=== PATIENT | male | born 1960 | race African-American/Black ===

== ENCOUNTER 2019-12-23 14:40 | Emergency (ER) | payer OTHER ==
[2019-12-24 14:40] LABS: SARS-CoV-2 MS2 Positive; SARS-CoV-2 N Gene Negative; SARS-CoV-2 S Gene Negative; SARS-CoV-2 orf1ab Negative
== END 2019-12-23 16:11 | disposition home or self-care (01) ==
LOC: ERS 14:40
DX: Z20.828 Contact with and (suspected) exposure to other viral communicable diseases (principal); E11.9 Type 2 diabetes mellitus without complications; I10 Essential (primary) hypertension; E78.5 Hyperlipidemia, unspecified; E78.00 Pure hypercholesterolemia, unspecified; F17.210 Nicotine dependence, cigarettes, uncomplicated
CPT/HCPCS: 87635; 99283; U0003

== ENCOUNTER 2020-08-21 11:08 | Outpatient (CLI) | payer OTHER | END 2020-08-21 11:09 | disposition home or self-care (01) | LOC: BICULT 11:08 | PROVIDERS: ATTEND Internal Medicine Cardiovascular Disease | DX: E07.89 Other specified disorders of thyroid (principal); E04.2 Nontoxic multinodular goiter | CPT/HCPCS: 76536 ==

== ENCOUNTER 2022-11-29 12:47 | Inpatient (IN) | payer BC ==
[2022-11-29 13:52] VITALS: BMI 30.4
[2022-11-29] MEDS ORDERED: HYDROcodone/Acetaminophen 5/325 mg Tablet PO PRN (14:51)
[2022-11-29] MEDS ORDERED: Ondansetron PF 4 MG/2 ML Vial IVP PRN (14:51)
[2022-11-29] MEDS ORDERED: Acetaminophen 325 MG TAB PO PRN (14:51)
[2022-11-29] MEDS ORDERED: Bisacodyl 5 MG TAB PO PRN (14:51)
[2022-11-29] MEDS ORDERED: Dextrose 50% Abboject 50 ML SYRINGE SLOW IVP PRN (15:26)
[2022-11-29] MEDS ORDERED: Glucagon 1 MG/ML KIT IM PRN (15:26)
[2022-11-29] MEDS ORDERED: HumaLOG 300 UNITS/3 ML VIAL SC PRN (15:26)
[2022-11-29] MEDS ORDERED: Dextrose 5% in Water 1,000 ML IV PRN (15:26)
[2022-11-29] MEDS: Nicotine 21 MG PATCH TD SCH (15:32)
[2022-11-29] MEDS: Sodium Chloride 0.9% 1,000 ML IV SCH (15:32)
[2022-11-29] MEDS: Piperacillin/Tazobactam 3.375 GM in Sodium Chloride 0.9% 100 ML IVPB SCH ×2 (16:34→23:11)
[2022-11-29] MEDS: Vancomycin HCl 125 MG/5 ML (BATCHED) UDCUP PO SCH (20:53)
[2022-11-30 02:22] LABS: Campy jejuni + coli by PCR Negative (Negative); STEC Shiga Toxin 1+2 Negative (Negative); Salmonella spp. by PCR POSITIVE (Negative); Shigella spp + EIEC by PCR Negative (Negative)
[2022-11-30] MEDS: Vancomycin HCl 125 MG/5 ML (BATCHED) UDCUP PO SCH ×4 (02:49→20:53)
[2022-11-30] MEDS: HYDROcodone/Acetaminophen 5/325 mg Tablet PO PRN ×3 (02:51→20:58)
[2022-11-30] MEDS: Sodium Chloride 0.9% 1,000 ML IV SCH ×3 (04:12→23:06)
[2022-11-30 09:06] LABS: #Basophils 0.1 thou/uL (0.0-0.2); #Eosinphils 0.1 thou/uL (0.0-0.7); #Monocytes 0.9 thou/uL (0.11-0.59); #Neutrophils 13.5 thou/uL (1.40-6.50); %Basophils 0.3 % (0.0-1.0); %Eosinophils 0.7 % (0.0-10.0); %Lymphocytes 8.8 % (21.0-51.0); %Monocytes 5.5 % (0.0-10.0); %Neutrophils 83.8 % (42.0-75.0); Hemoglobin 14.4 g/dL (14.0-18.0); Mean Corpuscular HGB CONC 32.8 g/dL (32.0-36.0); Mean Corpuscular Hemoglobin 27.6 pg (27.0-31.0); Mean Corpuscular Volume 84.3 fl (78.0-98.0); Mean Platelet Volume 8.3 fL (7.4-10.4); Platelet Count 332 10x3/uL (130-400); RBC Distribution Width 14.6 % (11.5-14.5); Red Blood Cell (RBC) Count 5.21 mill/uL (4.70-6.10); White Blood Cell (WBC) Count 16.1 10x3/uL (4.8-10.8)
[2022-11-30 09:27] LABS: Anion Gap 15 mmol/L (10-20); BUN (Urea Nitrogen) 13 mg/dL (8.4-25.7); Calc. Creatinine Clearance 73 mL/min (70-130); Calcium 8.8 mg/dL (7.8-10.44); Carbon Dioxide 18 mmol/L (23-31); Chloride 106 mmol/L (98-107); Estimated GFR 61; Glucose 160 mg/dL (80-115); Potassium 3.2 mmol/L (3.5-5.1); Sodium 136 mmol/L (136-145)
[2022-11-30] MEDS: Piperacillin/Tazobactam 3.375 GM in Sodium Chloride 0.9% 100 ML IVPB SCH ×3 (09:34→23:05)
[2022-11-30] MEDS: Saccharomyces boulardii 250 MG CAP PO SCH (09:35)
[2022-11-30] MEDS: Nicotine 21 MG PATCH TD SCH (15:22)
[2022-11-30] MEDS ORDERED: Potassium Chloride 20 MEQ TAB PO SCH (18:15)
[2022-11-30] MEDS: Simvastatin 5 MG TAB PO SCH (20:53)
[2022-12-01] MEDS: Vancomycin HCl 125 MG/5 ML (BATCHED) UDCUP PO SCH ×4 (02:20→20:31)
[2022-12-01 06:29] LABS: #Basophils 0.1 thou/uL (0.0-0.2); #Eosinphils 0.2 thou/uL (0.0-0.7); #Monocytes 1.1 thou/uL (0.11-0.59); #Neutrophils 10.7 thou/uL (1.40-6.50); %Basophils 0.4 % (0.0-1.0); %Eosinophils 1.1 % (0.0-10.0); %Lymphocytes 10.2 % (21.0-51.0); %Monocytes 8.3 % (0.0-10.0); %Neutrophils 79.3 % (42.0-75.0); Hemoglobin 14.1 g/dL (14.0-18.0); Mean Corpuscular HGB CONC 32.8 g/dL (32.0-36.0); Mean Corpuscular Hemoglobin 27.5 pg (27.0-31.0); Mean Corpuscular Volume 83.8 fl (78.0-98.0); Mean Platelet Volume 8.6 fL (7.4-10.4); Platelet Count 348 10x3/uL (130-400); RBC Distribution Width 14.5 % (11.5-14.5); Red Blood Cell (RBC) Count 5.13 mill/uL (4.70-6.10); White Blood Cell (WBC) Count 13.5 10x3/uL (4.8-10.8)
[2022-12-01 06:56] LABS: Anion Gap 14 mmol/L (10-20); BUN (Urea Nitrogen) 9 mg/dL (8.4-25.7); Calc. Creatinine Clearance 91 mL/min (70-130); Calcium 9.1 mg/dL (7.8-10.44); Carbon Dioxide 20 mmol/L (23-31); Chloride 107 mmol/L (98-107); Estimated GFR 79; Glucose 83 mg/dL (80-115); Potassium 3.8 mmol/L (3.5-5.1); Sodium 137 mmol/L (136-145)
[2022-12-01] MEDS: Aspirin 81 mg Enteric Coated Tablet PO SCH (08:07)
[2022-12-01] MEDS: Piperacillin/Tazobactam 3.375 GM in Sodium Chloride 0.9% 100 ML IVPB SCH ×3 (08:07→23:44)
[2022-12-01] MEDS: Fenofibrate Nanocrystallized 145 MG TAB PO SCH (08:08)
[2022-12-01] MEDS: Saccharomyces boulardii 250 MG CAP PO SCH (08:09)
[2022-12-01] MEDS: Montelukast Sodium 10 mg Tablet PO SCH (08:09)
[2022-12-01] MEDS: Nicotine 21 MG PATCH TD SCH (15:20)
[2022-12-01] MEDS: HYDROcodone/Acetaminophen 5/325 mg Tablet PO PRN (20:32)
[2022-12-01] MEDS: Simvastatin 5 MG TAB PO SCH (20:36)
[2022-12-01] MEDS: Sodium Chloride 0.9% 1,000 ML IV SCH (20:36)
[2022-12-02] MEDS: Vancomycin HCl 125 MG/5 ML (BATCHED) UDCUP PO SCH ×4 (02:42→21:01)
[2022-12-02 06:45] LABS: #Basophils 0.1 thou/uL (0.0-0.2); #Eosinphils 0.2 thou/uL (0.0-0.7); #Monocytes 0.8 thou/uL (0.11-0.59); #Neutrophils 6.1 thou/uL (1.40-6.50); %Basophils 0.6 % (0.0-1.0); %Eosinophils 2.2 % (0.0-10.0); %Monocytes 9.3 % (0.0-10.0); Hemoglobin 14.1 g/dL (14.0-18.0); Mean Corpuscular HGB CONC 33.1 g/dL (32.0-36.0); Mean Corpuscular Hemoglobin 27.7 pg (27.0-31.0); Mean Corpuscular Volume 83.7 fl (78.0-98.0); Mean Platelet Volume 8.4 fL (7.4-10.4); Platelet Count 333 10x3/uL (130-400); RBC Distribution Width 14.3 % (11.5-14.5); Red Blood Cell (RBC) Count 5.09 mill/uL (4.70-6.10); White Blood Cell (WBC) Count 8.6 10x3/uL (4.8-10.8)
[2022-12-02 07:10] LABS: Anion Gap 14 mmol/L (10-20); BUN (Urea Nitrogen) 8 mg/dL (8.4-25.7); Calc. Creatinine Clearance 91 mL/min (70-130); Calcium 9.2 mg/dL (7.8-10.44); Carbon Dioxide 20 mmol/L (23-31); Chloride 109 mmol/L (98-107); Estimated GFR 79; Glucose 87 mg/dL (80-115); Potassium 3.7 mmol/L (3.5-5.1); Sodium 139 mmol/L (136-145)
[2022-12-02] MEDS: Saccharomyces boulardii 250 MG CAP PO SCH (08:44)
[2022-12-02] MEDS: Montelukast Sodium 10 mg Tablet PO SCH (08:44)
[2022-12-02] MEDS: Fenofibrate Nanocrystallized 145 MG TAB PO SCH (08:44)
[2022-12-02] MEDS: Aspirin 81 mg Enteric Coated Tablet PO SCH (08:45)
[2022-12-02] MEDS: Piperacillin/Tazobactam 3.375 GM in Sodium Chloride 0.9% 100 ML IVPB SCH ×2 (08:45→16:19)
[2022-12-02] MEDS: Sodium Chloride 0.9% 1,000 ML IV SCH (14:29)
[2022-12-02] MEDS ORDERED: traMADol HCl 50 MG TAB PO PRN (14:38)
[2022-12-02] MEDS ORDERED: Acetaminophen 500 MG TAB PO PRN (14:38)
[2022-12-02] MEDS ORDERED: Lactated Ringer's 1,000 ML IV SCH (14:45)
[2022-12-02] MEDS ORDERED: Ketorolac Tromethamine 30 MG/ML VIAL IVP SCH (14:45)
[2022-12-02] MEDS ORDERED: Acetaminophen 500 MG TAB PO SCH (14:45)
[2022-12-02] MEDS ORDERED: Dextrose 50% Abboject 50 ML SYRINGE ONE (16:08)
[2022-12-02] MEDS: Nicotine 21 MG PATCH TD SCH (16:20)
[2022-12-02] MEDS: Lactated Ringer's 1,000 ML IV SCH (16:20)
[2022-12-02] MEDS: Ketorolac Tromethamine 30 MG/ML VIAL IVP SCH (17:19)
[2022-12-02] MEDS: Simvastatin 5 MG TAB PO SCH (21:01)
[2022-12-03] MEDS: Ketorolac Tromethamine 30 MG/ML VIAL IVP SCH ×2 (00:11→05:17)
[2022-12-03] MEDS: Piperacillin/Tazobactam 3.375 GM in Sodium Chloride 0.9% 100 ML IVPB SCH ×2 (00:11→10:19)
[2022-12-03] MEDS: Lactated Ringer's 1,000 ML IV SCH ×3 (00:50→16:19)
[2022-12-03] MEDS: Vancomycin HCl 125 MG/5 ML (BATCHED) UDCUP PO SCH ×3 (02:17→14:26)
[2022-12-03 06:30] LABS: #Basophils 0.1 thou/uL (0.0-0.2); #Eosinphils 0.2 thou/uL (0.0-0.7); #Monocytes 0.6 thou/uL (0.11-0.59); %Basophils 0.8 % (0.0-1.0); %Eosinophils 3.1 % (0.0-10.0); %Lymphocytes 23.9 % (21.0-51.0); %Monocytes 8.9 % (0.0-10.0); %Neutrophils 61.8 % (42.0-75.0); Hemoglobin 14.1 g/dL (14.0-18.0); Mean Corpuscular HGB CONC 32.6 g/dL (32.0-36.0); Mean Corpuscular Hemoglobin 27.5 pg (27.0-31.0); Mean Corpuscular Volume 84.4 fl (78.0-98.0); Mean Platelet Volume 8.4 fL (7.4-10.4); Platelet Count 366 10x3/uL (130-400); RBC Distribution Width 14.1 % (11.5-14.5); Red Blood Cell (RBC) Count 5.12 mill/uL (4.70-6.10); White Blood Cell (WBC) Count 6.5 10x3/uL (4.8-10.8)
[2022-12-03 06:57] LABS: Anion Gap 14 mmol/L (10-20); BUN (Urea Nitrogen) 10 mg/dL (8.4-25.7); Calc. Creatinine Clearance 86 mL/min (70-130); Calcium 9.6 mg/dL (7.8-10.44); Carbon Dioxide 20 mmol/L (23-31); Chloride 109 mmol/L (98-107); Estimated GFR 73; Glucose 92 mg/dL (80-115); Potassium 3.8 mmol/L (3.5-5.1); Sodium 139 mmol/L (136-145)
[2022-12-03] MEDS ORDERED: Bupivacaine/Epinephrine 0.25% 30 ML VIAL ONE (07:40)
[2022-12-03] MEDS ORDERED: fentaNYL PF 100 MCG/2 ML SYRINGE ONE (07:42)
[2022-12-03] MEDS ORDERED: fentaNYL 50 mcg/mL 1 mL Vial ONE (07:42)
[2022-12-03] MEDS ORDERED: Piperacillin/Tazobactam 3.375 GM VIAL ONE (07:43)
[2022-12-03] MEDS ORDERED: Sodium Chloride 0.9% 100 ML ONE (07:43)
[2022-12-03] MEDS ORDERED: Ondansetron PF 4 MG/2 ML Vial ONE (08:18)
[2022-12-03] MEDS ORDERED: Glycopyrrolate 0.2 MG/ML 5 ML SYRINGE ONE (08:18)
[2022-12-03] MEDS ORDERED: Succinylcholine 200 MG/10 ml SYRINGE FS ONE (08:18)
[2022-12-03] MEDS ORDERED: Dexamethasone 20 MG/5 ML VIAL ONE (08:18)
[2022-12-03] MEDS ORDERED: NEOSTIGMINE 3 MG/3 ML SYR 3 MG/3 ML SYRINGE ONE (08:18)
[2022-12-03] MEDS ORDERED: Lidocaine 1% PF 5 ML VIAL ONE (08:18)
[2022-12-03] MEDS ORDERED: Vecuronium 10 MG VIAL ONE (08:18)
[2022-12-03] MEDS ORDERED: PROPOFOL 200 MG/20 ML VIAL ONE (08:18)
[2022-12-03] MEDS ORDERED: Ketorolac Tromethamine 30 MG/ML VIAL ONE (08:18)
[2022-12-03] MEDS ORDERED: Morphine Sulfate 2 MG/ML SYRINGE SLOW IVP PRN (09:01)
[2022-12-03] MEDS ORDERED: HYDROmorphone 2 MG/ML VIAL SLOW IVP PRN (09:01)
[2022-12-03] MEDS ORDERED: PACU-Morphine 4MG/ML VIAL SLOW IVP PRN (09:01)
[2022-12-03] MEDS ORDERED: Ondansetron HCl/PF 4 MG/2 ML Vial IVP PRN (09:01)
[2022-12-03] MEDS ORDERED: Promethazine HCl 25 MG/ML VIAL IM PRN (09:01)
[2022-12-03] MEDS ORDERED: Ketorolac Tromethamine 30 MG/ML VIAL IVP PRN (09:10)
[2022-12-03] MEDS: Montelukast Sodium 10 mg Tablet PO SCH (09:32)
[2022-12-03] MEDS: Saccharomyces boulardii 250 MG CAP PO SCH (09:32)
[2022-12-03] MEDS: Fenofibrate Nanocrystallized 145 MG TAB PO SCH (09:32)
[2022-12-03] MEDS: Aspirin 81 mg Enteric Coated Tablet PO SCH (09:32)
[2022-12-03] MEDS ORDERED: Amlodipine 10 MG TAB PO SCH (11:15)
[2022-12-03 16:12] VITALS: BP 135/72; TEMP 97.4
[2022-12-03] MEDS: Nicotine 21 MG PATCH TD SCH (16:19)
== END 2022-12-03 15:10 | disposition home or self-care (01) | DRG 342 ==
LOC: T4-A 13:47
PROVIDERS: ADMIT Internal Medicine; ATTEND Internal Medicine
PROC: 0DTJ4ZZ Resection of Appendix, Percutaneous Endoscopic Approach (ICD-10-PCS; principal; 2022-12-03)
DX: K35.80 Unspecified acute appendicitis (principal); A04.72 Enterocolitis due to Clostridium difficile, not specified as recurrent; I10 Essential (primary) hypertension; E78.2 Mixed hyperlipidemia; E11.9 Type 2 diabetes mellitus without complications; F17.210 Nicotine dependence, cigarettes, uncomplicated; F10.90 Alcohol use, unspecified, uncomplicated; F19.10 Other psychoactive substance abuse, uncomplicated; G47.33 Obstructive sleep apnea (adult) (pediatric); E87.6 Hypokalemia; D35.02 Benign neoplasm of left adrenal gland; R16.0 Hepatomegaly, not elsewhere classified; K76.0 Fatty (change of) liver, not elsewhere classified; K63.89 Other specified diseases of intestine; Z79.82 Long term (current) use of aspirin; Z79.899 Other long term (current) drug therapy
CPT/HCPCS: 36415; 36416; 74178; 80048; 83630; 85025; 85652; 86140; 87324; 87449; 87505; 88304; 93005; 93010; A4649; J1100; J1650; J1885; J2405; J2543; J2704; J3010; J3490; J7050; J7120; J7999

== ENCOUNTER 2025-05-03 14:53 | Inpatient (IN) | payer BC, MEDICARE ==
[2025-05-03] MEDS ORDERED: Famotidine/PF 20 mg/2ml Vial ONE (15:41)
[2025-05-03] MEDS ORDERED: Ondansetron PF 4 MG/2 ML Vial ONE (16:13)
[2025-05-03] MEDS ORDERED: Lidocaine 1% PF 5 ML VIAL ONE (16:13)
[2025-05-03] MEDS ORDERED: SUCCINYLCHOLINE/SOD CL,ISO/PF 200 MG/10 ML SYRINGE FS ONE (16:13)
[2025-05-03] MEDS ORDERED: PROPOFOL 200 MG/20 ML VIAL ONE (16:42)
[2025-05-03] MEDS ORDERED: Propofol BOLUS 1,000 MG/100 ML VIAL IV PRN (17:45)
[2025-05-03] MEDS ORDERED: Fentanyl BOLUS 100 ML IVPB PRN (17:45)
[2025-05-03] MEDS ORDERED: DISCONTINUE PREVIOUS NARCOTIC PAIN MEDICATIONS AND BENZODIAZEPINES FS SCH (17:45)
[2025-05-03] MEDS ORDERED: Ondansetron PF 4 MG/2 ML Vial IVP PRN (18:05)
[2025-05-03] MEDS ORDERED: Glucagon 1 MG/ML KIT IM PRN (18:05)
[2025-05-03] MEDS ORDERED: Dextrose 50% Abboject 50 ML SYRINGE SLOW IVP PRN (18:05)
[2025-05-03 18:11] LABS: Hematocrit 50.0 % (42.0-52.0); Hemoglobin 15.8 g/dL (14.0-18.0)
[2025-05-03] MEDS ORDERED: Electrolyte Replacement Protocol 1 EACH FS SCH (18:15)
[2025-05-03] MEDS ORDERED: PHOS-NAK 1 PKT PACK PO PRN (18:15)
[2025-05-03] MEDS ORDERED: Magnesium 2 GM/50 ML(in water) 2 GM in Premix 1 BAG IVPB PRN (18:15)
[2025-05-03] MEDS ORDERED: Potassium Chloride 20 MEQ in Premix 1 BAG IVPB PRN (18:15)
[2025-05-03] MEDS: Ventilator Sedation Protocol 1 EACH FS ONE (18:47)
[2025-05-03 20:30] LABS: Actual Bicarbonate (HCO3a) 19.0 mEq/L (22-28); Base Excess (BEa) -6.5 mEq/L (-2.0 to +3.0); CO2 Tension 37.8 mmHg (35.0-45.0); Calcium, Ionized (arterial) 1.14 mmol/L (1.12-1.30); Hematocrit-ABG 46 % (42.0-52.0); Hemoglobin (Hb) 15.7 g/dL (14.0-18.0); O2 Tension (PaO2), arterial 70.7 mmHg (> 80.0); Potassium - ABG Lab 4.27 mmol/L (3.70-5.30); pH, Arterial 7.318 (7.35-7.45)
[2025-05-04 03:44] LABS: #Basophils Less than 0.03 10x3/uL (0.0-0.2); #Eosinophils Less than 0.03 10x3/uL (0.0-0.7); #Monocytes 0.10 10x3/uL (0.11-0.59); #Neutrophils 9.71 10x3/uL (1.40-6.50); %Basophils 0.2 % (0.0-1.0); %Eosinophils 0.0 % (0.0-10.0); %Lymphocytes 8.2 % (21.0-51.0); %Monocytes 0.9 % (0.0-10.0); %Neutrophils 90.2 % (42.0-75.0); Hematocrit 46.7 % (42.0-52.0); Hemoglobin 14.7 g/dL (14.0-18.0); Mean Corpuscular Hemoglobin 27.5 pg (27.0-31.0); Mean Corpuscular Volume 87.3 fL (78.0-98.0); Platelet Count 210 10x3/uL (130-400); Red Blood Cell (RBC) Count 5.35 mill/uL (4.70-6.10); White Blood Cell (WBC) Count 10.76 10x3/uL (4.8-10.8)
[2025-05-04 04:05] LABS: Anion Gap 19 mmol/L (10-20); BUN (Urea Nitrogen) 13 mg/dL (8.4-25.7); Calc. Creatinine Clearance 94 mL/min (70-130); Calcium 8.5 mg/dL (7.8-10.44); Carbon Dioxide 18 mmol/L (23-31); Chloride 111 mmol/L (98-107); Glucose 127 mg/dL (80-115); Potassium 4.5 mmol/L (3.5-5.1); Sodium 143 mmol/L (136-145)
[2025-05-04] MEDS: Pantoprazole 40 MG VIAL IVP SCH (08:04)
[2025-05-05 07:59] LABS: #Basophils Less than 0.03 10x3/uL (0.0-0.2); #Eosinophils Less than 0.03 10x3/uL (0.0-0.7); #Monocytes 0.49 10x3/uL (0.11-0.59); #Neutrophils 9.04 10x3/uL (1.40-6.50); %Basophils 0.1 % (0.0-1.0); %Eosinophils 0.0 % (0.0-10.0); %Lymphocytes 7.4 % (21.0-51.0); %Monocytes 4.7 % (0.0-10.0); %Neutrophils 87.2 % (42.0-75.0); Hematocrit 46.1 % (42.0-52.0); Hemoglobin 14.4 g/dL (14.0-18.0); Mean Corpuscular Hemoglobin 27.1 pg (27.0-31.0); Mean Corpuscular Volume 86.8 fL (78.0-98.0); Platelet Count 205 10x3/uL (130-400); Red Blood Cell (RBC) Count 5.31 mill/uL (4.70-6.10); White Blood Cell (WBC) Count 10.37 10x3/uL (4.8-10.8)
[2025-05-05 08:18] LABS: Anion Gap 20 mmol/L (10-20); BUN (Urea Nitrogen) 17 mg/dL (8.4-25.7); Calc. Creatinine Clearance 104 mL/min (70-130); Calcium 8.6 mg/dL (7.8-10.44); Carbon Dioxide 15 mmol/L (23-31); Chloride 117 mmol/L (98-107); Glucose 134 mg/dL (80-115); Potassium 4.8 mmol/L (3.5-5.1); Sodium 147 mmol/L (136-145)
[2025-05-05] MEDS: hydrALAZINE 20 MG/ML VIAL SLOW IVP PRN (15:28)
[2025-05-06 03:39] LABS: #Basophils Less than 0.03 10x3/uL (0.0-0.2); #Eosinophils Less than 0.03 10x3/uL (0.0-0.7); #Monocytes 0.45 10x3/uL (0.11-0.59); #Neutrophils 8.69 10x3/uL (1.40-6.50); %Basophils 0.1 % (0.0-1.0); %Eosinophils 0.0 % (0.0-10.0); %Lymphocytes 6.0 % (21.0-51.0); %Monocytes 4.6 % (0.0-10.0); %Neutrophils 88.7 % (42.0-75.0); Hematocrit 47.8 % (42.0-52.0); Hemoglobin 14.9 g/dL (14.0-18.0); Mean Corpuscular Hemoglobin 27.2 pg (27.0-31.0); Mean Corpuscular Volume 87.4 fL (78.0-98.0); Platelet Count 184 10x3/uL (130-400); Red Blood Cell (RBC) Count 5.47 mill/uL (4.70-6.10); White Blood Cell (WBC) Count 9.80 10x3/uL (4.8-10.8)
[2025-05-06 04:51] LABS: ALT (SGPT) 158 U/L (Less than 45); AST (SGOT) 105 U/L (11-34); Albumin 3.5 g/dL (3.1-4.5); Alkaline Phosphatase 62 U/L (40-110); Anion Gap 16 mmol/L (10-20); BUN (Urea Nitrogen) 19 mg/dL (8.4-25.7); Bilirubin, Total 0.4 mg/dL (0.3-1.2); Calc. Creatinine Clearance 121 mL/min (70-130); Calcium 9.2 mg/dL (7.8-10.44); Carbon Dioxide 23 mmol/L (23-31); Chloride 116 mmol/L (98-107); Globulin 4.0 g/dL (2.4-3.5); Glucose 157 mg/dL (80-115); Potassium 4.3 mmol/L (3.5-5.1); Sodium 151 mmol/L (136-145)
[2025-05-06] MEDS ORDERED: Lidocaine 1% (PF) 30 ML VIAL ONE (11:46)
[2025-05-06] MEDS ORDERED: fentaNYL PF 100 MCG/2 ML SYRINGE ONE ×3 (11:46→12:53)
[2025-05-06] MEDS ORDERED: Ondansetron PF 4 MG/2 ML Vial ONE (13:02)
[2025-05-06 14:54] LABS: Sodium 147 mmol/L (136-145)
[2025-05-06] MEDS: Metoprolol Succinate XL 25 MG ER.TAB PO SCH (19:34)
[2025-05-06] MEDS: Mupirocin 1 GM TUBE NASAL DECOLONIZATION NASAL SCH (19:34)
[2025-05-06] MEDS: Cyclobenzaprine 10 MG TAB PO SCH (19:34)
[2025-05-06] MEDS: Gabapentin 300 MG CAP PO SCH (19:34)
[2025-05-06] MEDS: Cefdinir 125 MG/5 ML Oral Suspension PO SCH (21:07)
[2025-05-07 05:50] LABS: ALT (SGPT) 122 U/L (Less than 45); AST (SGOT) 60 U/L (11-34); Albumin 3.3 g/dL (3.1-4.5); Alkaline Phosphatase 49 U/L (40-110); Anion Gap 16 mmol/L (10-20); BUN (Urea Nitrogen) 19 mg/dL (8.4-25.7); Bilirubin, Total 0.7 mg/dL (0.3-1.2); Calc. Creatinine Clearance 117 mL/min (70-130); Calcium 8.9 mg/dL (7.8-10.44); Carbon Dioxide 19 mmol/L (23-31); Chloride 112 mmol/L (98-107); Globulin 4.2 g/dL (2.4-3.5); Glucose 112 mg/dL (80-115); Potassium 4.1 mmol/L (3.5-5.1); Sodium 143 mmol/L (136-145)
[2025-05-07 06:48] LABS: #Basophils Less than 0.03 10x3/uL (0.0-0.2); #Eosinophils Less than 0.03 10x3/uL (0.0-0.7); #Monocytes 0.62 10x3/uL (0.11-0.59); #Neutrophils 10.64 10x3/uL (1.40-6.50); %Basophils 0.1 % (0.0-1.0); %Eosinophils 0.1 % (0.0-10.0); %Lymphocytes 5.7 % (21.0-51.0); %Monocytes 5.1 % (0.0-10.0); %Neutrophils 88.2 % (42.0-75.0); Hematocrit 47.2 % (42.0-52.0); Hemoglobin 15.5 g/dL (14.0-18.0); Mean Corpuscular Hemoglobin 27.7 pg (27.0-31.0); Mean Corpuscular Volume 84.3 fL (78.0-98.0); Platelet Count 185 10x3/uL (130-400); Red Blood Cell (RBC) Count 5.60 mill/uL (4.70-6.10); White Blood Cell (WBC) Count 12.07 10x3/uL (4.8-10.8)
[2025-05-07] MEDS: Metoprolol Succinate XL 25 MG ER.TAB PO SCH (09:51)
[2025-05-07] MEDS: Rosuvastatin 20 MG TAB PO SCH (09:51)
[2025-05-07] MEDS: predniSONE 20 MG TAB PO SCH (13:23)
[2025-05-08 07:26] LABS: #Basophils Less than 0.03 10x3/uL (0.0-0.2); #Eosinophils Less than 0.03 10x3/uL (0.0-0.7); #Monocytes 0.86 10x3/uL (0.11-0.59); #Neutrophils 5.03 10x3/uL (1.40-6.50); %Basophils 0.1 % (0.0-1.0); %Eosinophils 0.1 % (0.0-10.0); %Lymphocytes 17.5 % (21.0-51.0); %Monocytes 11.9 % (0.0-10.0); %Neutrophils 69.8 % (42.0-75.0); Hematocrit 47.0 % (42.0-52.0); Hemoglobin 15.0 g/dL (14.0-18.0); Mean Corpuscular Hemoglobin 27.0 pg (27.0-31.0); Mean Corpuscular Volume 84.7 fL (78.0-98.0); Platelet Count 179 10x3/uL (130-400); Red Blood Cell (RBC) Count 5.55 mill/uL (4.70-6.10); White Blood Cell (WBC) Count 7.21 10x3/uL (4.8-10.8)
[2025-05-08 07:51] LABS: ALT (SGPT) 87 U/L (Less than 45); AST (SGOT) 32 U/L (11-34); Albumin 3.2 g/dL (3.1-4.5); Alkaline Phosphatase 49 U/L (40-110); Anion Gap 12 mmol/L (10-20); BUN (Urea Nitrogen) 20 mg/dL (8.4-25.7); Bilirubin, Total 0.8 mg/dL (0.3-1.2); Calc. Creatinine Clearance 122 mL/min (70-130); Calcium 8.8 mg/dL (7.8-10.44); Carbon Dioxide 23 mmol/L (23-31); Chloride 111 mmol/L (98-107); Globulin 3.7 g/dL (2.4-3.5); Glucose 101 mg/dL (80-115); Potassium 3.2 mmol/L (3.5-5.1); Sodium 143 mmol/L (136-145)
[2025-05-08] MEDS: predniSONE 20 MG TAB PO SCH (09:31)
[2025-05-08 14:53] VITALS: BMI 28.8
[2025-05-09 05:17] VITALS: BMI 27.6
[2025-05-09 05:21] LABS: #Basophils Less than 0.03 10x3/uL (0.0-0.2); #Eosinophils 0.03 10x3/uL (0.0-0.7); #Monocytes 0.76 10x3/uL (0.11-0.59); #Neutrophils 4.52 10x3/uL (1.40-6.50); %Basophils 0.1 % (0.0-1.0); %Eosinophils 0.4 % (0.0-10.0); %Lymphocytes 25.4 % (21.0-51.0); %Monocytes 10.6 % (0.0-10.0); %Neutrophils 62.8 % (42.0-75.0); Hematocrit 48.4 % (42.0-52.0); Hemoglobin 15.4 g/dL (14.0-18.0); Mean Corpuscular Hemoglobin 27.1 pg (27.0-31.0); Mean Corpuscular Volume 85.1 fL (78.0-98.0); Platelet Count 173 10x3/uL (130-400); Red Blood Cell (RBC) Count 5.69 mill/uL (4.70-6.10); White Blood Cell (WBC) Count 7.20 10x3/uL (4.8-10.8)
[2025-05-09 05:35] LABS: Anion Gap 15 mmol/L (10-20); BUN (Urea Nitrogen) 19 mg/dL (8.4-25.7); Calc. Creatinine Clearance 107 mL/min (70-130); Calcium 8.8 mg/dL (7.8-10.44); Carbon Dioxide 22 mmol/L (23-31); Chloride 112 mmol/L (98-107); Glucose 96 mg/dL (80-115); Magnesium 2.6 mg/dL (1.6-2.6); Potassium 3.5 mmol/L (3.5-5.1); Sodium 145 mmol/L (136-145)
[2025-05-09 12:31] VITALS: BP 144/86; TEMP 98.5
== END 2025-05-09 13:35 | disposition home or self-care (01) | DRG 987 ==
LOC: ERS 14:53 → SDC/OP 16:10 → CCU 17:48 → T4-A 05-06 17:28
PROVIDERS: ADMIT Internal Medicine; ATTEND Internal Medicine
PROC: 0DC18ZZ Extirpation of Matter from Upper Esophagus, Via Natural or Artificial Opening Endoscopic (ICD-10-PCS; 2025-05-03)
PROC: 0BH17EZ Insertion of Endotracheal Airway into Trachea, Via Natural or Artificial Opening (ICD-10-PCS; 2025-05-03)
PROC: 5A1945Z Respiratory Ventilation, 24-96 Consecutive Hours (ICD-10-PCS; 2025-05-03)
PROC: 3E03329 Introduction of Other Anti-infective into Peripheral Vein, Percutaneous Approach (ICD-10-PCS; 2025-05-03)
PROC: 0KQ Muscles, Repair (ICD-10-PCS; principal; 2025-05-06)
DX: T18.128A Food in esophagus causing other injury, initial encounter (principal); J96.00 Acute respiratory failure, unspecified whether with hypoxia or hypercapnia; K91.72 Accidental puncture and laceration of a digestive system organ or structure during other procedure; E11.9 Type 2 diabetes mellitus without complications; E78.5 Hyperlipidemia, unspecified; I10 Essential (primary) hypertension; Z72.0 Tobacco use; S09.8XXA Other specified injuries of head, initial encounter; T88.4XXA Failed or difficult intubation, initial encounter; E87.6 Hypokalemia
CPT/HCPCS: 36415; 36416; 71045; 80048; 80053; 82805; 83735; 85025; 86850; 86900; 86901; 94002; 94003; 96374; 96375; J0169; J0295; J0360; J1100; J1308; J2003; J2250; J2405; J2470; J2704; J2919; J7030; J7120; J7512